=== PATIENT | male | born 2000 | race Caucasian/White ===

== ENCOUNTER 2021-10-20 11:35 | Inpatient (IN) | payer BC ==
[~2021-10-20] VITALS: Ht 185.4 cm; Wt 72.6 kg
[2021-10-20] MEDS: IV NORMAL SALINE 1000 ML BAG IV ONE ×2 (11:57→13:00)
[2021-10-20] MEDS ORDERED: IV NORMAL SALINE 1000 ML BAG IV ONE ×3 (12:00→17:30)
[2021-10-20 12:23] LABS: HEMATOCRIT 45.7 % (36.7-47.1); MEAN CORPUSCULAR HEMOGLOBIN 30.8 uug (23.8-33.4); MEAN CORPUSCULAR VOLUME 90.2 fL (73.0-96.2); PLATELET COUNT (AUTO) 219 K/uL (152-348)
[2021-10-20 12:24] LABS: POTASSIUM 4.5 mmol/L (3.5-5.1)
--- NOTE | 2021-10-20 12:30 | NUR ---
Pt came in c/o pain on the arms. He went to a doctor and advised him to go to the ER for further test. He has elevated CK after working out x1, 4 days ago with brown colored urine.
[2021-10-20 12:35] LABS: BILIRUBIN,DIRECT 0.1 mg/dL (0.0-0.2); BILIRUBIN,TOTAL 0.8 mg/dL (0.2-1.0); TOTAL PROTEIN, SERUM 6.8 g/dL (6.4-8.2)
[2021-10-20 13:21] LABS: *BILIRUBIN,URIN NEGATIVE (NEGATIVE); *BLOOD, URINE 3+ (NEGATIVE); *CLARITY,URINE CLEAR (CLEAR); *COLOR,URINE YELLOW (YELLOW); *KETONES,URINE NEGATIVE (NEGATIVE); *UROBILINOGEN,URINE 0.2 E.U./dl (NORMAL); LEUKOCYTE ESTERASE ,URINE NEGATIVE (NEGATIVE); NITRITE, URINE NEGATIVE (NEGATIVE); UGLUCOSE NEGATIVE (NEGATIVE)
[2021-10-20 13:52] LABS: RBC,URINE 0-3 /HPF (0-3)
[2021-10-20 13:53] LABS: BACTERIA,URINE NONE SEEN /HPF (NONE SEEN); SQUAMOUS EPITHELIAL CELL,UR FEW /HPF (NONE SEEN); WBC,URINE NONE SEEN /HPF (0-3)
--- NOTE | 2021-10-20 15:02 | NUR ---
Pt has been voiding well. 3x already with about 400 of urine each time. Able to drink water and tolerating well. No n/v. No further increase of pain in his bilateral arms on the triceps.
[2021-10-20 15:22] LABS: BILIRUBIN,DIRECT 0.1 mg/dL (0.0-0.2); BILIRUBIN,TOTAL 0.7 mg/dL (0.2-1.0); TOTAL PROTEIN, SERUM 6.1 g/dL (6.4-8.2)
--- NOTE | 2021-10-20 17:36 | NUR ---
Sent second specimen for repeat CPK, i.e., after 3000 ml of crystalloid. Pt remained alert, oriented, speaking in full sentences. No abdominal pain. Urine is now clear. Able to maintain his own fluid balance by drinking water.
--- NOTE | 2021-10-20 17:52 | NUR ---
Pt's first CPK level sent to [facility] is [phone]. Dr. Issa aware.
[2021-10-20] MEDS ORDERED: REMEDY ESSENTIAL ZINC PASTE 113 GM TP PRN (18:15)
[2021-10-20] MEDS ORDERED: ACETAMINOPHEN 325 MG TABLET PO PRN (18:15)
[2021-10-20] MEDS ORDERED: ONDANSETRON 4 MG/2 ML VIAL IV PRN (18:15)
[2021-10-20] MEDS ORDERED: MAGNESIUM HYDROXIDE 30 ML LIQUID UDC PO PRN (18:15)
[2021-10-20] MEDS: IV NS 1000 ML 1,000 ML IV SCH (18:15)
--- NOTE | 2021-10-20 19:58 | NUR ---
Report given to González. Pt will be going to Med-surg Rm [address] Romero.
--- NOTE | 2021-10-20 21:00 | NUR ---
Admitted patient in Med surg under the care of Dr Romero, alert oriented, no sob no chest pain, ambulatory, no complain of pain, with bedside visitor. no s/s of distress.
--- NOTE | 2021-10-20 21:22 | NUR ---
Notify Dr Romero cpk [phone] with no new order, cont to monitor.
[2021-10-20 21:26] VITALS: BP 124/67
--- NOTE | 2021-10-20 22:11 | NUR ---
Patient urine yellow to clear in color. cont to monitor.
[2021-10-21] MEDS: IV NS 1000 ML 1,000 ML IV SCH ×3 (01:12→16:47)
[2021-10-21 05:47] VITALS: BP 105/56
--- NOTE | 2021-10-21 05:49 | NUR ---
Patient alert oriented, no sob no chest paint, no muscle cramps, urine yellow clear voided x2, no complain of pain, cont to monitor.
[2021-10-21 06:45] LABS: MEAN CORPUSCULAR HEMOGLOBIN 30.7 uug (23.8-33.4); MEAN CORPUSCULAR VOLUME 90.8 fL (73.0-96.2); PLATELET COUNT (AUTO) 202 K/uL (152-348)
[2021-10-21 06:54] LABS: CREATININE 0.9 mg/dL (0.6-1.3)
[2021-10-21 07:10] LABS: BILIRUBIN,DIRECT 0.1 mg/dL (0.0-0.2); BILIRUBIN,TOTAL 0.7 mg/dL (0.2-1.0); MAGNESIUM 1.8 mg/dL (1.8-2.4); PHOSPHOROUS 3.7 mg/dL (2.5-4.9); TOTAL PROTEIN, SERUM 5.7 g/dL (6.4-8.2)
[2021-10-21 11:35] VITALS: BP 117/59
[2021-10-21 16:00] VITALS: BP 127/48
--- NOTE | 2021-10-21 18:32 | NUR ---
dc orders received noted and carried out.dc heplock per md orders.dc instruction and education given to the pt.pt said he will follow up with his pcp in one week pt left the facility via private car in stable condition
== END 2021-10-21 18:30 | disposition home or self-care (01) | DRG 558 ==
LOC: ER 11:35 → MEDSURG3 20:33
PROVIDERS: ADMIT Internal Medicine; ATTEND Internal Medicine
DX: M62.82 Rhabdomyolysis (principal); Z20.822 Contact with and (suspected) exposure to COVID-19; R74.01 Elevation of levels of liver transaminase levels
CPT/HCPCS: 36415; 83605; 83690; 83735; 84100; 85025; A4663; G0378; J7040